=== PATIENT | female | born 1970 | race Caucasian/White ===

== ENCOUNTER → 2016-07-02 | Outpatient (REF) | payer BC ==
[~2016-07-02] MED LIST: ACET65TA; ATRO0.06; BUSP30TA PO; CLAR10CA3 PO; CLAR5CHW; D 50CAP PO; DARV100T; FERR325T; LEVO25TA5 PO; LEVO50TA2; LITH150C PO; LITH300T2; LITH600C; LYRI150C; LYRI150C PO; LYRI300C; MAALSUS; METO25TAB PO; MUCINEX; OCEAN NASAL SPRAY; OXYB5TAB4; PRIL20CA; PROT1TAB2 PO; PROV90AE; PROV90AE PO; SUCR1TA PO; SYMB80AE PO; VIBR100C; VICO5TAB16 PO; VITA100T; VITATAB64 PO; XOPE1.252; ZANT300T PO; ZEBE5TAB; [UNRECOGNIZED DRUG - OTHER]
[2016-07-02 11:44] LABS: ALBUMIN 3.5 GM/DL (3.2-5.2); ANION GAP 7 MEQ/L (8-16); BLOOD UREA NITROGEN 11 MG/DL (7-18); CALCIUM LEVEL 8.5 MG/DL (8.5-10.1); CARBON DIOXIDE LEVEL 28 MEQ/L (21-32); CHLORIDE LEVEL 107 MEQ/L (98-107); CREATININE FOR GFR 0.86 MG/DL (0.55-1.02); GLOMERULAR FILTRATION RATE > 60.0 (>58); GLUCOSE, FASTING 87 MG/DL (70-105); PHOSPHORUS LEVEL 3.2 MG/DL (2.5-4.9); SODIUM LEVEL 142 MEQ/L (136-145); T UPTAKE 32 % (30-39); THYROXINE (T4) 6.9 UG/DL (4.5-12.0)
[2016-07-02 11:50] LABS: LITHIUM LEVEL 1.33 MEQ/L (0.60-1.20)
== END | disposition home or self-care (01) ==
LOC: M LABDRAWC 10:59
PROVIDERS: ATTEND Anesthesiology Pain Medicine
DX: Z51.81 Encounter for therapeutic drug level monitoring (principal); Z79.899 Other long term (current) drug therapy

== ENCOUNTER → 2016-09-14 | Outpatient (CLI) | payer BC ==
--- NOTE | 2016-09-14 08:35 | REP ---
History of psoriatic arthritis. COMPARISON: 12/17/2014. FINDINGS: The joint space is symmetric and relatively well maintained. There is no acute fracture or dislocation. No significant change from prior exam.
== END ==
LOC: M CLY 07:44
PROVIDERS: ATTEND Family Medicine
DX: M25.552 Pain in left hip (principal)

== ENCOUNTER → 2016-11-17 | Outpatient (REF) | payer BC ==
[2016-11-17 18:46] LABS: ALBUMIN 3.4 GM/DL (3.2-5.2); ALBUMIN/GLOBULIN RATIO 1.26 (1.00-1.93); ALKALINE PHOSPHATASE 82 U/L (45-117); ALT/SGPT 21 U/L (12-78); ANION GAP 3 MEQ/L (8-16); AST/SGOT 13 U/L (15-37); BILIRUBIN,TOTAL 0.3 MG/DL (0.2-1.0); BLOOD UREA NITROGEN 7 MG/DL (7-18); CALCIUM LEVEL 8.5 MG/DL (8.5-10.1); CARBON DIOXIDE LEVEL 29 MEQ/L (21-32); CHLORIDE LEVEL 106 MEQ/L (98-107); CREATININE FOR GFR 0.74 MG/DL (0.55-1.02); GLOMERULAR FILTRATION RATE > 60.0 (>58); GLUCOSE, FASTING 104 MG/DL (70-105); POTASSIUM SERUM 4.4 MEQ/L (3.5-5.1); SODIUM LEVEL 138 MEQ/L (136-145); T UPTAKE 35 % (30-39); THYROXINE (T4) 8.9 UG/DL (4.5-12.0); TOTAL PROTEIN 6.1 GM/DL (6.4-8.2)
[2016-11-17 20:10] LABS: MEAN CORPUSCULAR HEMOGLOBIN 26.2 pg (27.0-33.0); MEAN CORPUSCULAR VOLUME 87.5 fl (80.0-96.0); RED CELL DISTRIBUTION WIDTH 14.7 % (11.5-14.5); WHITE BLOOD COUNT 8.5 K/mm3 (4.0-10.0)
== END ==
LOC: M LAB REF 16:56
PROVIDERS: ATTEND Anesthesiology Pain Medicine
DX: Z51.81 Encounter for therapeutic drug level monitoring (principal); Z79.899 Other long term (current) drug therapy

== ENCOUNTER → 2017-01-06 | Outpatient (CLI) | payer BC ==
[~2017-01-06] MED LIST changes: +METO25TA4 PO; -METO25TAB PO
--- NOTE | 2017-01-07 08:10 | REP ---
Clinical: Arthritis. Technique: AP, lateral, bilateral oblique and sunrise views of the right and left knee. Findings: Subchondral sclerosis and mild joint space narrowing is appreciated involving the bilateral medial and patellofemoral joint spaces. Remainder examination is normal for age. No acute or healed fracture. No effusion. Impression: Mild degenerative changes. Signed by Harry Fofana MD 01/07/2017 02:36 A
--- NOTE | 2017-01-07 08:10 | REP ---
Clinical: Bursitis. Technique: AP, lateral, bilateral oblique views of the right elbow. Findings: Lateral view demonstrates a small fractured osteophyte at the olecranon process. Minimal overlying soft tissue swelling noted. No obvious effusion. Remainder examination appears relatively normal for age. No further acute fracture dislocation. Impression: Mild degenerative changes related to the olecranon process may reflect mild underlying acute/chronic bursitis. Signed by Harry Fofana MD 01/07/2017 02:41 A
== END ==
LOC: M CLY 10:05
PROVIDERS: ATTEND Family Medicine
DX: M19.90 Unspecified osteoarthritis, unspecified site (principal); M70.21 Olecranon bursitis, right elbow

== ENCOUNTER → 2017-01-14 | Outpatient (CLI) | payer BC ==
--- NOTE | 2017-01-14 14:53 | REPMRS ---
Patient History The patient states she had a clinical breast exam in No known family history of cancer. Digital Woman Screen Mammo: January 14, 2017 - Exam #: [id number] Bilateral CC and MLO view(s) were taken. Technologist: Juhi Arellano, Technologist Prior study comparison: January 26, 2016, digital woman screen mammo performed at [facility] to [facility]. December 03, 2014, digital woman screen mammo performed at [facility]. FINDINGS: There are scattered fibroglandular densities. There has been no change in the appearance of the mammogram from the prior studies. There is a mild amount of residual fibroglandular tissue which is fairly symmetric. There is no interval development of dominant mass, architectural distortion, or clustered microcalcification suggestive of malignancy. ASSESSMENT: BI-RADS/ACR category 1 mammogram. Negative. Recommendation Routine screening mammogram in 1 year (for women over age 40). This mammogram was interpreted with the aid of an FDA-approved computer-aided dectection system. Electronically Signed By: Iggy Fink MD 01/14/17 [id number]
== END ==
LOC: M WHC 13:21
PROVIDERS: ATTEND Nurse Practitioner Family
DX: Z12.31 Encounter for screening mammogram for malignant neoplasm of breast (principal)

== ENCOUNTER → 2017-01-14 | Outpatient (REF) | payer BC | LOC: M SFHCWAGY 13:59 | PROVIDERS: ATTEND Nurse Practitioner Family | DX: Z01.419 Encounter for gynecological examination (general) (routine) without abnormal findings (principal); Z11.51 Encounter for screening for human papillomavirus (HPV); R87.610 Atypical squamous cells of undetermined significance on cytologic smear of cervix (ASC-US) ==

== ENCOUNTER → 2017-02-08 | Outpatient (CLI) | payer BC ==
--- NOTE | 2017-02-08 14:36 | REP ---
Clinical: Shoulder pain . Technique: Internal rotation, external rotation, and Y view right and left shoulder . Findings: No acute fracture or dislocation. The acromioclavicular and glenohumeral joints are intact and normal for age. No periarticular calcifications or overt arthritic degenerative changes are appreciated. Sub acromial space is normal. Surrounding soft tissues are unremarkable. Impression: Normal age appropriate bilateral shoulder radiographs.
--- NOTE | 2017-02-08 14:37 | REP ---
Clinical: Pain. Technique: AP, lateral, bilateral oblique views of the right hand. Findings: No acute fracture dislocation. Skeletal structures, joint spaces, and surrounding soft tissues are relatively normal for age. Very minimal joint space narrowing at the interphalangeal joint level is suggested. No further osteoarthritic degenerative changes are identified. Impression: Essentially age-appropriate examination. Very minimal joint space narrowing at the interphalangeal joints.
--- NOTE | 2017-02-08 14:38 | REP ---
Clinical: Pain . Technique: AP, lateral, bilateral oblique and weightbearing views of the bilateral ankles. Findings: No acute fracture or dislocation. Skeletal structures and joint spaces are intact and normal. Ankle mortise appears stable. No subcutaneous emphysema or radiodense foreign body. No significant, overt arthritic degenerative changes appreciated. Impression: Normal bilateral ankle radiograph series.
--- NOTE | 2017-02-08 14:40 | REP ---
Clinical: Lower back pain. Technique: AP, bilateral oblique and angled views of the sacroiliac joints. Findings: The bilateral sacroiliac joints are symmetric and normal. No significant periarticular sclerosis, erosive changes, fusion or spurring appreciated. Impression: Normal, age-appropriate bilateral sacroiliac joint series.
[2017-02-08 18:26] LABS: BASO # 0.1 K/mm3 (0.0-0.2); BASO % 0.8 % (0.0-1.0); EOS # 0.3 K/mm3 (0.0-0.50); LARGE UNSTAINED CELL # 0.1 K/mm3 (0.0-0.4); LARGE UNSTAINED CELL % 1.8 % (0.0-4.0); LYMPH # 1.2 K/mm3 (1.5-4.5); MEAN CORPUSCULAR HEMOGLOBIN 27.8 pg (27.0-33.0); MEAN CORPUSCULAR HGB CONC 30.9 g/dl (32.0-36.5); MEAN CORPUSCULAR VOLUME 89.8 fl (80.0-96.0); MONO # 0.4 K/mm3 (0.0-0.8); MONO % 4.8 % (0.0-5.0); NEUTROPHILS # 5.4 K/mm3 (1.8-7.7); NEUTROPHILS % 72.5 % (36.0-66.0); PLATELET COUNT, AUTOMATED 227 k/mm3 (150-450); RED CELL DISTRIBUTION WIDTH 14.6 % (11.5-14.5); WHITE BLOOD COUNT 7.5 K/mm3 (4.0-10.0)
[2017-02-08 19:09] LABS: ALBUMIN 3.6 GM/DL (3.2-5.2); ALBUMIN/GLOBULIN RATIO 1.16 (1.00-1.93); ALKALINE PHOSPHATASE 108 U/L (45-117); ALT/SGPT 19 U/L (12-78); ANION GAP 8 MEQ/L (8-16); AST/SGOT 13 U/L (15-37); BILIRUBIN,TOTAL 0.3 MG/DL (0.2-1.0); BLOOD UREA NITROGEN 7 MG/DL (7-18); CARBON DIOXIDE LEVEL 26 MEQ/L (21-32); CHLORIDE LEVEL 110 MEQ/L (98-107); CREATININE FOR GFR 0.88 MG/DL (0.55-1.02); GLOMERULAR FILTRATION RATE > 60.0 (>58); GLUCOSE, FASTING 42 MG/DL (70-105); POTASSIUM SERUM 4.2 MEQ/L (3.5-5.1); SODIUM LEVEL 144 MEQ/L (136-145); TOTAL PROTEIN 6.7 GM/DL (6.4-8.2)
--- NOTE | 2017-02-08 19:35 | REP ---
LUMBAR SPINE, FIVE VIEWS: HISTORY: Back pain. COMPARISON: 01/15/2013. There is no acute fracture or subluxation. The L4-5 and L5-S1 intervertebral discs are decreased in height. Vacuum phenomenon is present at L5-S1. These findings are consistent with disc degeneration. Osteophytes are present on L5 and S1. There is narrowing of the L4-5 and L5-S1 facet joints. IMPRESSION:Degenerative change as described above.
[2017-02-08 19:53] LABS: ERYTHROCYTE SEDIMENTATION RATE 10 mm/hr (0-20)
[2017-02-10 14:25] LABS: ALBUMIN 3.87 GM/DL (3.29-5.55); ALBUMIN % 57.7 % (55.8-66.1); GAMMA GLOBULIN % 12.2 % (11.1-18.8)
[2017-02-11 00:06] LABS: Lyme Disease IgG/IgM Antibodie <0.91 ISR (0.00-0.90); Lyme Disease IgM Ab Quantitati <0.80 index (0.00-0.79)
== END ==
LOC: M CLY 12:45
PROVIDERS: ATTEND Internal Medicine Rheumatology
DX: Z51.81 Encounter for therapeutic drug level monitoring (principal); Z79.899 Other long term (current) drug therapy; D80.1 Nonfamilial hypogammaglobulinemia; E55.9 Vitamin D deficiency, unspecified; R53.83 Other fatigue; M18.0 Bilateral primary osteoarthritis of first carpometacarpal joints; M51.37 Other intervertebral disc degeneration, lumbosacral region

== ENCOUNTER 2017-05-13 11:42 | Day surgery (SDC) | payer BC ==
[~2017-05-13] VITALS: Ht 162.6 cm; Wt 86.6 kg
[~2017-05-13 11:42] MED LIST changes: +LYRI300C PO
[2017-05-13] MEDS ORDERED: PROPOFOL 200 MG/20 ML VIAL As Ordered ONE (12:04)
[2017-05-13] MEDS ORDERED: LIDOCAINE 2% INJ 100 MG/5 ML SDV (FOR ANES.) As Ordered ONE (12:04)
[2017-05-13] MEDS ORDERED: NS 1,000 ML IV ONE (13:00)
--- NOTE | 2017-05-13 14:07 | ROOR ---
Patient Name: Cintia Briggs Procedure Date: 05/13/2017 1:41 PM Date of : 1970 Age: 46 [facility] Gender: Female Note Status: Finalized Procedure: Upper GI endoscopy Indications: Oropharyngeal phase dysphagia, Suspected gastroparesis (large food in stomach on a previous scope) Providers: Kade ROBERSON MD Referring MD: Sergio Zayas MD Requesting Provider: Medicines: Monitored Anesthesia Care Complications: No immediate complications. Procedure: Pre-Anesthesia Assessment: - The heart rate, respiratory rate, oxygen saturations, blood pressure, adequacy of pulmonary ventilation, and response to care were monitored throughout the procedure. The Endoscope was introduced through the mouth, and advanced to the second part of duodenum. The upper GI endoscopy was accomplished without difficulty. The patient tolerated the procedure well. Findings: The examined esophagus was normal. No endoscopic abnormality was evident in the esophagus to explain the patient's complaint of dysphagia. It was decided, however, to proceed with dilation of the entire esophagus. The scope was withdrawn. Dilation was performed with a Lance dilator with no resistance at 54 Fr. The dilation site was examined following endoscope reinsertion and showed no change. Evidence of an antrectomy and previous surgical anastomosis were found in the gastric antrum. This was characterized by healthy appearing mucosa. The examined duodenum was normal. Impression: - Normal esophagus. - No endoscopic esophageal abnormality to explain patient's dysphagia. Esophagus dilated with 54 F lance dilator. - A probable antrectomy (or pyloroplasty) and resection of part of fundus was found, characterized by healthy appearing mucosa. Overall volume of stomach is probably only mildly reduced. - Normal examined duodenum. - No specimens collected. Recommendation: - Observe patient's clinical course. - Continue present medications. - Gastroparesis diet: - Eat smaller, more frequent meals throughout the day. - Low fat diet. - Liquid/soft foods are tolerated better than solid foods. - Low fiber/well cooked vegetables are tolerated better than high fiber/fibrous foods/raw vegetables. - Avoid medications that inhibit gastric/intestinal motility such as narcotic medications. Kade Roberson MD Kade ROBERSON MD 05/13/2017 2:07:27 PM This report has been signed electronically. Number of Addenda: 0 Note Initiated On: 05/13/2017 1:41 PM Estimated Blood Loss: Estimated blood loss: none.
[2017-05-13 14:41] VITALS: BP 142/80
== END 2017-05-13 14:30 | disposition home or self-care (01) ==
LOC: M OPP 11:42
PROVIDERS: ATTEND Internal Medicine Gastroenterology
DX: R13.12 Dysphagia, oropharyngeal phase (principal); Z98.0 Intestinal bypass and anastomosis status; Z90.3 Acquired absence of stomach [part of]; I10 Essential (primary) hypertension; K21.9 Gastro-esophageal reflux disease without esophagitis; J45.909 Unspecified asthma, uncomplicated; Q07.00 Arnold-Chiari syndrome without spina bifida or hydrocephalus; R00.0 Tachycardia, unspecified; E05.90 Thyrotoxicosis, unspecified without thyrotoxic crisis or storm; F31.9 Bipolar disorder, unspecified; F41.9 Anxiety disorder, unspecified; F43.10 Post-traumatic stress disorder, unspecified; Z87.891 Personal history of nicotine dependence; Z88.8 Allergy status to other drugs, medicaments and biological substances; Z79.899 Other long term (current) drug therapy

== ENCOUNTER → 2017-07-18 | Outpatient (REF) | payer BC ==
[2017-07-18 13:39] LABS: BASO # 0.1 10^3/uL (0.0-0.2); BASO % 0.8 % (0.0-1.0); EOS # 0.4 10^3/uL (0.0-0.50); EOS % 2.8 % (0.0-3.0); HEMATOCRIT 42.8 % (36.0-47.0); HEMOGLOBIN 13.3 g/dl (12.0-16.0); IMMATURE GRANULOCYTE % 0.3 % (0-3.0); LYMPH % 16.5 % (24.0-44.0); MEAN CORPUSCULAR HGB CONC 31.1 g/dl (32.0-36.5); MEAN CORPUSCULAR VOLUME 96.6 fl (80.0-96.0); MONO # 0.8 10^3/uL (0.0-0.8); MONO % 6.2 % (0.0-5.0); NEUTROPHILS % 73.4 % (36.0-66.0); PLATELET COUNT, AUTOMATED 238 10^3/uL (150-450); RED BLOOD COUNT 4.43 10^6/uL (4.00-5.40); RED CELL DISTRIBUTION WIDTH 14.1 % (11.5-14.5); WHITE BLOOD COUNT 12.3 10^3/uL (4.0-10.0)
[2017-07-18 14:13] LABS: ALBUMIN/GLOBULIN RATIO 1.43 (1.00-1.93); ALKALINE PHOSPHATASE 116 U/L (45-117); ALT/SGPT 17 U/L (12-78); ANION GAP 3 MEQ/L (8-16); AST/SGOT 15 U/L (7-37); BILIRUBIN,TOTAL 0.4 MG/DL (0.2-1.0); BLOOD UREA NITROGEN 9 MG/DL (7-18); CALCIUM LEVEL 9.2 MG/DL (8.5-10.1); CARBON DIOXIDE LEVEL 31 MEQ/L (21-32); CHLORIDE LEVEL 111 MEQ/L (98-107); CREATININE FOR GFR 0.96 MG/DL (0.55-1.30); FREE T3 2.5 PG/ML (2.2-4.0); GLOMERULAR FILTRATION RATE > 60.0 (>58); GLUCOSE, FASTING 110 MG/DL (70-100); POTASSIUM SERUM 5.1 MEQ/L (3.5-5.1); SODIUM LEVEL 145 MEQ/L (136-145); THYROID STIMULATING HORMONE 0.971 uIU/ML (0.358-3.740); THYROXINE (T4) 8.4 UG/DL (4.5-12.0); TOTAL PROTEIN 6.8 GM/DL (6.4-8.2)
[2017-07-18 14:14] LABS: LITHIUM LEVEL 1.41 MEQ/L (0.60-1.20)
== END ==
LOC: M LABDRAWC 08:20
DX: F31.9 Bipolar disorder, unspecified (principal)

== ENCOUNTER → 2017-07-21 | Outpatient (CLI) | payer BC | LOC: M CLY 11:19 | DX: M19.90 Unspecified osteoarthritis, unspecified site (principal) | CPT/HCPCS: 73610 ==

== ENCOUNTER → 2017-09-16 | Outpatient (REF) | payer BC ==
[2017-09-16 12:56] LABS: TOTAL 25(OH) VITAMIN D 60.1 NG/ML (30.0-100.0)
[2017-09-16 13:01] LABS: ALBUMIN 3.7 GM/DL (3.2-5.2); ALBUMIN/GLOBULIN RATIO 1.28 (1.00-1.93); ALKALINE PHOSPHATASE 92 U/L (45-117); ALT/SGPT 20 U/L (12-78); ANION GAP 5 MEQ/L (8-16); AST/SGOT 15 U/L (7-37); BILIRUBIN,TOTAL 0.3 MG/DL (0.2-1.0); BLOOD UREA NITROGEN 9 MG/DL (7-18); CALCIUM LEVEL 9.2 MG/DL (8.5-10.1); CARBON DIOXIDE LEVEL 29 MEQ/L (21-32); CHLORIDE LEVEL 110 MEQ/L (98-107); CREATININE FOR GFR 0.85 MG/DL (0.55-1.30); GLOMERULAR FILTRATION RATE > 60.0 (>58); GLUCOSE, FASTING 97 MG/DL (70-100); POTASSIUM SERUM 4.3 MEQ/L (3.5-5.1); RHEUMATOID FACTOR QUANT < 10.0 IU/ML (<15.0); SODIUM LEVEL 144 MEQ/L (136-145); TOTAL PROTEIN 6.6 GM/DL (6.4-8.2)
[2017-09-16 13:20] LABS: BASO # 0.1 10^3/uL (0.0-0.2); BASO % 1.7 % (0.0-1.0); EOS # 0.3 10^3/uL (0.0-0.50); EOS % 4.4 % (0.0-3.0); HEMATOCRIT 42.8 % (36.0-47.0); HEMOGLOBIN 13.5 g/dl (12.0-15.5); IMMATURE GRANULOCYTE % 0.2 % (0-3.0); LYMPH # 1.5 10^3/uL (1.5-4.5); LYMPH % 25.9 % (24.0-44.0); MEAN CORPUSCULAR HEMOGLOBIN 30.2 pg (27.0-33.0); MEAN CORPUSCULAR HGB CONC 31.5 g/dl (32.0-36.5); MEAN CORPUSCULAR VOLUME 95.7 fl (80.0-96.0); MONO # 0.5 10^3/uL (0.0-0.8); MONO % 8.9 % (0.0-5.0); NEUTROPHILS # 3.5 10^3/uL (1.8-7.7); NEUTROPHILS % 58.9 % (36.0-66.0); PLATELET COUNT, AUTOMATED 205 10^3/uL (150-450); RED BLOOD COUNT 4.47 10^6/uL (4.00-5.40); RED CELL DISTRIBUTION WIDTH 13.4 % (11.5-14.5)
[2017-09-16 14:02] LABS: ERYTHROCYTE SEDIMENTATION RATE 23 mm/hr (0-20)
[2017-09-17 14:11] LABS: ANTINUCLEAR ANTIBODIES DIRECT Negative (Negative)
== END ==
LOC: M LABNEURO 10:24
DX: R51 Headache (principal)
CPT/HCPCS: 84443

== ENCOUNTER → 2018-01-26 | Outpatient (CLI) | payer BC | LOC: M WHC 07:52 | DX: Z12.31 Encounter for screening mammogram for malignant neoplasm of breast (principal) | CPT/HCPCS: 77067 ==

== ENCOUNTER → 2018-03-10 | Outpatient (REF) | payer BC ==
[2018-03-10 19:00] LABS: C REACTIVE PROTEIN QUANTITATIV < 0.30 MG/DL (0.00-0.30)
[2018-03-10 19:13] LABS: TOTAL 25(OH) VITAMIN D 66.6 NG/ML (30.0-100.0)
[2018-03-14 00:06] LABS: RNP ANTIBODY < 0.2 AI (0.0-0.9); SMITHS ANTIBODY < 0.2 AI (0.0-0.9)
== END ==
LOC: M SFHCLERA 12:06
DX: M25.50 Pain in unspecified joint (principal)

== ENCOUNTER → 2018-04-13 | Outpatient (REF) | payer BC ==
[2018-04-21 00:56] LABS: HPV HYBRID CAPTURE II Negative (Negative)
== END ==
LOC: M SFHCWAGY 16:16
DX: Z01.419 Encounter for gynecological examination (general) (routine) without abnormal findings (principal); Z11.51 Encounter for screening for human papillomavirus (HPV); R87.610 Atypical squamous cells of undetermined significance on cytologic smear of cervix (ASC-US)

== ENCOUNTER → 2018-04-21 | Outpatient (REF) | payer BC ==
[2018-04-21 12:22] LABS: ANION GAP 5 MEQ/L (8-16); BLOOD UREA NITROGEN 9 MG/DL (7-18); CARBON DIOXIDE LEVEL 29 MEQ/L (21-32); CHLORIDE LEVEL 109 MEQ/L (98-107); CHOLESTEROL LEVEL 140 MG/DL (<200); CREATININE FOR GFR 0.78 MG/DL (0.55-1.30); GLOMERULAR FILTRATION RATE > 60.0 (>58); GLUCOSE, FASTING 96 MG/DL (70-100); POTASSIUM SERUM 4.3 MEQ/L (3.5-5.1); SODIUM LEVEL 143 MEQ/L (136-145); TRIGLYCERIDES LEVEL 115 MG/DL (<150)
[2018-04-21 12:23] LABS: ALBUMIN 3.4 GM/DL (3.2-5.2); FREE T3 2.5 PG/ML (2.2-4.0); FREE T4 0.94 NG/DL (0.76-1.46); HDL CHOLESTEROL 35 MG/DL (>40); LDL CHOLESTEROL 82 MG/DL (<100); LITHIUM LEVEL 1.32 MEQ/L (0.60-1.20); NON-HDL-C 105 MG/DL
== END ==
LOC: M LABDRAWC 11:38
DX: Z79.899 Other long term (current) drug therapy (principal); F31.9 Bipolar disorder, unspecified
CPT/HCPCS: 80178

== ENCOUNTER → 2018-05-05 | Outpatient (REF) | payer BC | LOC: M SFHCCLAY 11:44 | DX: D50.0 Iron deficiency anemia secondary to blood loss (chronic) (principal); Z53.8 Procedure and treatment not carried out for other reasons ==

== ENCOUNTER → 2018-06-08 | Outpatient (CLI) | payer BC ==
[~2018-06-08] MED LIST changes: -ZANT300T PO; +ZANT300T9 PO
--- NOTE | 2018-06-08 21:10 | REP ---
Clinical: Abnormal menstrual cycles . Technique: Transabdominal pelvic ultrasound followed by transvaginal examination for better evaluation of the endometrium and adnexa. Comparison: 02/03/2016 Findings: Bladder is unremarkable and measures 7.7 x 4.2 x 8.5 cm . Myomatous anteverted uterus measures 7.9 x 3.7 x 5.1 cm . The endometrial complex measures 8.4 mm thickness. Right anterior fibroid measures 1.8 cm maximal diameter and posterior subserosal fibroid measures 1.8 cm maximal diameter Right ovary measures 3.7 x 2.9 x 2.5 cm with 2.4 cm complex septated cyst and 1.8 cm simple likely physiologic cyst ; Left ovary measures 3.6 x 1.9 x 3.7 cm with a 2.5 cm complex septated cyst and 1.8 cm simple cyst. No pelvic free fluid or adnexal mass lesion identified . Impression: 1. Myomatous changes to the uterus similar to prior examination. 2. Bilateral complex septated cysts likely physiologic although reevaluation in 4-6 weeks may be warranted. Electronically Signed by Harry Fofana MD 06/08/2018 09:00 P
== END ==
LOC: M WHC 10:37
PROVIDERS: ATTEND Nurse Practitioner Family
DX: N83.202 Unspecified ovarian cyst, left side (principal); N92.1 Excessive and frequent menstruation with irregular cycle

== ENCOUNTER → 2018-07-20 | Outpatient (CLI) | payer BC ==
--- NOTE | 2018-07-20 15:15 | REP ---
PELVIC ULTRASOUND: Real-time sonographic evaluation of pelvis performed utilizing transabdominal and endovaginal technique. Bladder measures 5.6 x 7.6 x 4.7 cm. Uterus measures 6.0 x 3.4 x 4.1 cm. Endometrial thickness is 5 mm. Lower uterine segment fibroid measures 1.7 x 0.9 x 1.6 cm. Nabothian cyst is seen in the region of the cervix. Right ovary measures 2.6 x 2.1 x 2.1 cm, and left ovary 2.9 x 2.9 x 2.3 cm. Two small cystic structures in the right ovary are seen, one measuring 9 mm, and the other containing a septation measuring 1.3 x 0.7 x 0.7 cm. There are two small cystic structures in the left ovary with one having a maximum diameter of 8 mm and the other 1.1 cm. IMPRESSION: Small lower uterine segment fibroid again seen. The cystic structures in the right ovary seen on 06/08/2018 appear to have decreased in size and appear to have represented dominant follicles. Another complex dominant follicle in the left ovary has either resolved or decreased in size. No suspicious findings at this time.
== END ==
LOC: M WHC 12:40
PROVIDERS: ATTEND Obstetrics & Gynecology
DX: D25.9 Leiomyoma of uterus, unspecified (principal); N88.8 Other specified noninflammatory disorders of cervix uteri

== ENCOUNTER → 2018-12-04 | Outpatient (REF) | payer BC ==
[~2018-12-04] MED LIST changes: +ALBU17IN2 INH; +CALC-176 PO; +CALC1TAB11 PO; +CVS1CHW8 PO; +D3 S20002 PO; +DESM0.2T10 PO; +DOCU250C7 PO; +FERR150C PO; +FOLI1TAB11 PO; +LEVO100T5 PO; +LIDO5CRE6 EX; +LITH1TAB PO; +METO50TA7 PO; +SYMB16INH INH; -VICO5TAB16 PO; +VICO5TAB17 PO; +VITA1CAP25 PO
[2018-12-04 11:50] LABS: BASO # 0.1 10^3/uL (0.0-0.2); BASO % 1.5 % (0.0-1.0); EOS # 0.3 10^3/uL (0.0-0.50); EOS % 4.1 % (0.0-3.0); HEMATOCRIT 42.9 % (36.0-47.0); HEMOGLOBIN 13.4 g/dl (12.0-15.5); LYMPH # 2.3 10^3/uL (1.5-4.5); LYMPH % 34.3 % (24.0-44.0); MEAN CORPUSCULAR HEMOGLOBIN 30.8 pg (27.0-33.0); MEAN CORPUSCULAR HGB CONC 31.2 g/dl (32.0-36.5); MEAN CORPUSCULAR VOLUME 98.6 fl (80.0-96.0); MONO # 0.5 10^3/uL (0.0-0.8); MONO % 6.9 % (0.0-5.0); NEUTROPHILS # 3.5 10^3/uL (1.8-7.7); PLATELET COUNT, AUTOMATED 197 10^3/uL (150-450); RED BLOOD COUNT 4.35 10^6/uL (4.00-5.40); WHITE BLOOD COUNT 6.7 10^3/uL (4.0-10.0)
[2018-12-04 12:21] LABS: ALBUMIN 3.4 GM/DL (3.2-5.2); ALT/SGPT 18 U/L (12-78); BILIRUBIN,TOTAL 0.5 MG/DL (0.2-1.0); BLOOD UREA NITROGEN 8 MG/DL (7-18); CALCIUM LEVEL 9.2 MG/DL (8.5-10.1); CARBON DIOXIDE LEVEL 29 MEQ/L (21-32); CHLORIDE LEVEL 109 MEQ/L (98-107); CREATININE FOR GFR 0.88 MG/DL (0.55-1.30); GLOMERULAR FILTRATION RATE > 60.0 (>58); GLUCOSE, FASTING 86 MG/DL (70-100); LITHIUM LEVEL 1.26 MEQ/L (0.60-1.20); POTASSIUM SERUM 4.3 MEQ/L (3.5-5.1); SODIUM LEVEL 142 MEQ/L (136-145); THYROXINE (T4) 7.2 UG/DL (4.5-12.0); TOTAL PROTEIN 6.2 GM/DL (6.4-8.2)
[2018-12-04 12:22] LABS: FREE T3 2.5 PG/ML (2.2-4.0)
== END ==
LOC: M LABDRAWC 11:15
PROVIDERS: ATTEND Anesthesiology Pain Medicine
DX: Z01.812 Encounter for preprocedural laboratory examination (principal)

== ENCOUNTER 2018-12-28 08:50 | Day surgery (SDC) | payer BC ==
[~2018-12-28] VITALS: Ht 167.6 cm; Wt 85.6 kg
[~2018-12-28 08:50] MED LIST changes: +LIDOCAINE 1% MDV 20ML VIAL SQ PRN; +LR 1,000 ML IV ONE
[2018-12-28 09:55] LABS: URINE PREG TEST NEGATIVE (NEGATIVE)
[2018-12-28] MEDS ORDERED: dexameTHASONE 4 MG/ML 1ML VIAL (J1100) As Ordered ONE (10:05)
[2018-12-28] MEDS ORDERED: ONDANSETRON 4MG/2ML VIAL (J2405) As Ordered ONE (10:05)
[2018-12-28] MEDS ORDERED: PROPOFOL 200 MG/20 ML VIAL As Ordered ONE (10:05)
[2018-12-28] MEDS ORDERED: LIDOCAINE 2% INJ 100 MG/5 ML SDV (FOR ANES.) As Ordered ONE (10:05)
[2018-12-28] MEDS ORDERED: MIDAZOLAM INJ 2 MG/2 ML VIAL (J2250) As Ordered ONE (10:06)
[2018-12-28] MEDS ORDERED: fentaNYL 100 MCG/2 ML INJECTION (J3010) As Ordered ONE (10:06)
[2018-12-28] MEDS ORDERED: SUCCINYLCHOLINE 100 MG/5 ML SYRINGE (J0330) As Ordered ONE (13:00)
[2018-12-28] MEDS ORDERED: KETOROLAC 60 MG/2 ML VIAL (J1885) As Ordered ONE (13:05)
[2018-12-28] MEDS ORDERED: ACETAMINOPHEN 1000MG 100ML IV BTL (OFIRMEV) (J0131 PER 10MG) As Ordered ONE (13:11)
[2018-12-28] MEDS ORDERED: NORCO, ANEXSIA 5/325MG TABLET (HYDROcodone/ACETAMINOPHEN) PO PRN ×2 (13:45→14:00)
[2018-12-28] MEDS ORDERED: ONDANSETRON 4MG/2ML VIAL (J2405) IV PRN (13:45)
[2018-12-28] MEDS ORDERED: MORPHINE 10 MG/ML 1ML VIAL (J2270) IV PRN (13:45)
[2018-12-28] MEDS ORDERED: LR 1,000 ML IV SCH (13:45)
[2018-12-28] MEDS ORDERED: IBUPROFEN 600 MG TAB PO PRN (14:00)
[2018-12-28 15:45] VITALS: BP 148/79
--- NOTE | 2018-12-29 11:01 | RO ---
DATE OF PROCEDURE: 12/28/2018 PREPROCEDURE DIAGNOSIS: Bleeding and pain. POSTPROCEDURE DIAGNOSIS: Bleeding and pain with findings as expected. PROCEDURE: Dilation and curettage, hysteroscopy, NovaSure ablation. SURGEON: Dr. Qian Parikh. COLD FOOD PACKER: None. ANESTHESIA: General endotracheal anesthesia. The patient has significant reflux. SPECIMENS: Curettings of the endometrium. DESCRIPTION OF PROCEDURE: Cintia was brought to the operating room where sufficient general endotracheal anesthesia was induced and she was prepped, draped and positioned in the usual sterile fashion. The weighted speculum placed, the bladder emptied and the anterior aspect of the cervix was grasped with a single tooth tenaculum. The uterus was sounded to 7 but the cervix was actually a little shortened as well sounding to 3, so we had a cavity length of 4. Subsequently, width was measured at 3, but at this point, we just had cavity length. The hysteroscope was placed and the cavity visualized. As noted in the operative photos, there were no unusual lesions, a little bit of endometrium as is consistent with the patient's report of heavy bleeding. Curettage was carried out to sample this and to smooth out the lining of the uterus for the ablation and then the NovaSure ablative device was placed. Length set at 4, width was measured at 3 and an uncomplicated test was undertaken and so we then did the NovaSure ablation. There were no complications and the procedure was then ended. ESTIMATED BLOOD LOSS: Maybe 1 mL. FLUID REPLACEMENT: Crystalloid. COMPLICATIONS: None. CONDITION AND DISPOSITION: Cintia tolerated the procedure well and was recovering in the recovery room in good condition.
== END 2018-12-28 16:03 | disposition home or self-care (01) ==
LOC: M SDC 08:50
PROVIDERS: ATTEND Obstetrics & Gynecology
DX: R10.2 Pelvic and perineal pain (principal); N92.0 Excessive and frequent menstruation with regular cycle; F43.10 Post-traumatic stress disorder, unspecified; F31.9 Bipolar disorder, unspecified; J45.909 Unspecified asthma, uncomplicated; K21.9 Gastro-esophageal reflux disease without esophagitis; K44.9 Diaphragmatic hernia without obstruction or gangrene; Z79.899 Other long term (current) drug therapy; Z79.51 Long term (current) use of inhaled steroids; Z91.040 Latex allergy status; I49.5 Sick sinus syndrome; Z88.0 Allergy status to penicillin; Z88.8 Allergy status to other drugs, medicaments and biological substances
CPT/HCPCS: 58356; 84703; 88304; J0131; J0330; J1100; J1885; J2250; J2405; J3010

== ENCOUNTER → 2019-02-21 | Outpatient (CLI) | payer BC ==
[~2019-02-21] MED LIST changes: -ALBU17IN2 INH; -LIDOCAINE 1% MDV 20ML VIAL SQ PRN; -LR 1,000 ML IV ONE; +PROV108A INH
--- NOTE | 2019-02-21 13:37 | REPMRS ---
Patient History The patient states she had a clinical breast exam in 02/2019. No known family history of cancer. 3D TOMOSYNTHESIS WAS PERFORMED. The [facility] lifetime risk for breast cancer is 10.6%. Digital Woman Screen Mammo: February 21, 2019 - Exam #: [id number] Bilateral CC and MLO view(s) were taken. Technologist: Clara Guido, Technologist Prior study comparison: January 26, 2018, bilateral digital woman screen mammo performed at [facility]. January 14, 2017, digital woman screen mammo performed at [facility]. FINDINGS: The breast tissue is heterogeneously dense. This may lower the sensitivity of mammography. There has been no change in the appearance of the mammogram from the prior studies. There is a moderate amount of residual fibroglandular tissue which is fairly symmetric. There is no interval development of dominant mass, areas of architectural distortion, or clustered microcalcification typical of malignancy. Assessment: BI-RADS/ACR category 1 mammogram. Negative Mammogram. Recommendation Routine screening mammogram in 1 year (for women over age 40). This mammogram was interpreted with the aid of an FDA-approved computer-aided dectection system. Electronically Signed By: Iggy Fink MD 02/21/19 [id number]
--- NOTE | 2019-02-26 10:12 | DEXA ---
AP SPINE L1 - L4 1.110 -0.7 -0.4 LT FEMUR TOTAL 0.841 -1.3 -0.9 LT NECK 0.772 -1.9 -1.2 RT FEMUR TOTAL 0.799 -1.7 -1.2 RT NECK 0.813 -1.6 -0.9 TOTAL BODY TOTAL OTHER COMMENTS: Normal bone densitometry of the spine. There is low bone density of the hips. The increased density of the spine does represent a significant change. The increased density of the left hip does represent a significant change. The increased density of the right hip does represent a significant change. The density of the spine has increased 3.1% since the initial exam on 10/15/2003. The spine density has increased 7.5% since the most recent exam on 03/16/2016. The density of the left hip has decreased 13.7% since the initial exam on 10/15/2003. The density of the left hip has increased 6.9% since the most recent exam on 03/16/2016. The density of the right hip has decreased 13.4% since the initial exam on 10/15/2003. The density of the right hip has increased 2.6% since the most recent exam on 03/16/2016. FOLLOW-UP: Recommendation for the next bone density exam: 2 years. MIRANDA
== END ==
LOC: M WHC 11:06
PROVIDERS: ATTEND Nurse Practitioner Family
DX: Z12.31 Encounter for screening mammogram for malignant neoplasm of breast (principal); M85.80 Other specified disorders of bone density and structure, unspecified site

== ENCOUNTER → 2019-02-26 | Outpatient (REF) | payer BC ==
[2019-02-26 12:59] LABS: ALBUMIN 3.4 GM/DL (3.2-5.2); BLOOD UREA NITROGEN 8 MG/DL (7-18); CALCIUM LEVEL 8.8 MG/DL (8.5-10.1); CARBON DIOXIDE LEVEL 30 MEQ/L (21-32); CHLORIDE LEVEL 109 MEQ/L (98-107); CREATININE FOR GFR 0.71 MG/DL (0.55-1.30); FREE T3 2.4 PG/ML (2.2-4.0); GLOMERULAR FILTRATION RATE > 60.0 (>58); GLUCOSE, FASTING 87 MG/DL (70-100); LITHIUM LEVEL 0.78 MEQ/L (0.60-1.20); PHOSPHORUS LEVEL 3.1 MG/DL (2.5-4.9); POTASSIUM SERUM 4.9 MEQ/L (3.5-5.1); SODIUM LEVEL 142 MEQ/L (136-145); THYROXINE (T4) 6.2 UG/DL (4.5-12.0)
== END ==
LOC: M LABDRAWC 11:14
PROVIDERS: ATTEND Anesthesiology Pain Medicine
DX: F31.9 Bipolar disorder, unspecified (principal)

== ENCOUNTER → 2019-07-13 | Outpatient (REF) | payer BC ==
[2019-07-13 16:20] LABS: BASO # 0.2 10^3/uL (0.0-0.2); BASO % 2.3 % (0.0-1.0); EOS # 0.3 10^3/uL (0.0-0.5); HEMATOCRIT 42.1 % (36.0-47.0); HEMOGLOBIN 13.5 g/dl (12.0-15.5); LYMPH # 1.5 10^3/uL (1.5-5.0); LYMPH % 23.2 % (24.0-44.0); MEAN CORPUSCULAR HGB CONC 32.1 g/dl (32.0-36.5); MEAN CORPUSCULAR VOLUME 96.6 fl (80.0-96.0); MONO # 0.5 10^3/uL (0.0-0.8); MONO % 7.4 % (0.0-5.0); NEUTROPHILS # 4.1 10^3/uL (1.5-8.5); NEUTROPHILS % 61.9 % (36.0-66.0); PLATELET COUNT, AUTOMATED 206 10^3/uL (150-450); RED BLOOD COUNT 4.36 10^6/uL (4.00-5.40); WHITE BLOOD COUNT 6.6 10^3/uL (4.0-10.0)
[2019-07-13 16:30] LABS: LITHIUM LEVEL 1.45 MEQ/L (0.60-1.20); THYROID STIMULATING HORMONE 0.729 uIU/ML (0.358-3.740)
== END ==
LOC: M SFHCCLAY 10:17
PROVIDERS: ATTEND Family Medicine
DX: J01.41 Acute recurrent pansinusitis (principal); E03.2 Hypothyroidism due to medicaments and other exogenous substances; F31.70 Bipolar disorder, currently in remission, most recent episode unspecified; J45.909 Unspecified asthma, uncomplicated

== ENCOUNTER → 2019-11-12 | Outpatient (REF) | payer BC ==
[2019-11-12 11:50] LABS: ALBUMIN 3.6 GM/DL (3.2-5.2); BLOOD UREA NITROGEN 6 MG/DL (7-18); CALCIUM LEVEL 9.2 MG/DL (8.5-10.1); CARBON DIOXIDE LEVEL 29 MEQ/L (21-32); CHLORIDE LEVEL 110 MEQ/L (98-107); CREATININE FOR GFR 0.94 MG/DL (0.55-1.30); GLOMERULAR FILTRATION RATE > 60.0 (>58); GLUCOSE, FASTING 108 MG/DL (70-100); LITHIUM LEVEL 1.36 MEQ/L (0.60-1.20); PHOSPHORUS LEVEL 3.1 MG/DL (2.5-4.9); POTASSIUM SERUM 4.5 MEQ/L (3.5-5.1); SODIUM LEVEL 142 MEQ/L (136-145); THYROXINE (T4) 5.8 UG/DL (4.5-12.0)
== END ==
LOC: M LABDRAWC 11:22
PROVIDERS: ATTEND Anesthesiology Pain Medicine
DX: F31.9 Bipolar disorder, unspecified (principal)

== ENCOUNTER 2020-01-08 12:15 | Day surgery (SDC) | payer BC ==
[2020-01-08] MEDS ORDERED: propofoL 200 MG/20 ML VIAL ONE (12:16)
[2020-01-08] MEDS ORDERED: LIDOCAINE 2% 100MG/5ML SDV (FOR ANES.) ONE (12:16)
--- NOTE | 2020-02-13 11:33 | ROOR ---
Patient Name: Cintia Briggs Procedure Date: 01/08/2020 9:45 AM Date of : 1970 Age: 49 Room: [facility] Gender: Female Note Status: Finalized Procedure: Upper GI endoscopy Indications: Oropharyngeal phase dysphagia, Pharyngeal phase dysphagia, Dysphagia, Heartburn Providers: Kade WARREN MD Referring MD: Sergio Zayas MD Requesting Provider: Medicines: Monitored Anesthesia Care Complications: No immediate complications. Procedure: Pre-Anesthesia Assessment: - The heart rate, respiratory rate, oxygen saturations, blood pressure, adequacy of pulmonary ventilation, and response to care were monitored throughout the procedure. The Endoscope was introduced through the mouth, and advanced to the second part of duodenum. The upper GI endoscopy was accomplished without difficulty. The patient tolerated the procedure well. Findings: The examined esophagus was normal. No endoscopic abnormality was evident in the esophagus to explain the patient's complaint of dysphagia. It was decided, however, to proceed with dilation of the entire esophagus. The scope was withdrawn. Dilation was performed with a Lance dilator with no resistance at 54 Fr. The entire examined stomach was normal. A deformity was found at the pylorus. The examined duodenum was normal. Impression: - Normal esophagus. - No endoscopic esophageal abnormality to explain patient's dysphagia. Esophagus dilated. Dilated. - Normal stomach (tubular appearing lumen with post-surgical deformity c/w a previous pyloroplasty). (I do not see a fundoplication wrap) - Normal examined duodenum. - No specimens collected. Recommendation: - Observe patient's clinical course. - I anticipate no further need for intervention. Kade WARREN MD 01/08/2020 12:37:23 PM Number of Addenda: 0 Note Initiated On: 01/08/2020 9:45 AM Estimated Blood Loss: Estimated blood loss: none.
== END 2020-01-08 14:05 | disposition home or self-care (01) ==
LOC: M OPP 12:15
PROVIDERS: ATTEND Internal Medicine Gastroenterology
DX: D12.3 Benign neoplasm of transverse colon (principal); K64.8 Other hemorrhoids; Z09 Encounter for follow-up examination after completed treatment for conditions other than malignant neoplasm; K91.89 Other postprocedural complications and disorders of digestive system; R13.12 Dysphagia, oropharyngeal phase; R13.13 Dysphagia, pharyngeal phase; R12 Heartburn; E03.9 Hypothyroidism, unspecified; R00.8 Other abnormalities of heart beat; Z79.899 Other long term (current) drug therapy; Z88.8 Allergy status to other drugs, medicaments and biological substances; Z91.041 Radiographic dye allergy status; Z91.048 Other nonmedicinal substance allergy status

== ENCOUNTER → 2020-02-05 | Outpatient (REF) | payer BC ==
[2020-02-05 13:57] LABS: BASO # 0.1 10^3/uL (0.0-0.2); BASO % 1.5 % (0.0-1.0); EOS # 0.4 10^3/uL (0.0-0.5); EOS % 7.2 % (0.0-3.0); HEMATOCRIT 42.9 % (36.0-47.0); HEMOGLOBIN 13.4 g/dl (12.0-15.5); LYMPH % 37.8 % (24.0-44.0); MEAN CORPUSCULAR HEMOGLOBIN 30.2 pg (27.0-33.0); MEAN CORPUSCULAR HGB CONC 31.2 g/dl (32.0-36.5); MEAN CORPUSCULAR VOLUME 96.6 fl (80.0-96.0); MONO # 0.5 10^3/uL (0.0-0.8); MONO % 9.5 % (0.0-5.0); NEUTROPHILS # 2.3 10^3/uL (1.5-8.5); NEUTROPHILS % 43.8 % (36.0-66.0); PLATELET COUNT, AUTOMATED 187 10^3/uL (150-450); RED BLOOD COUNT 4.44 10^6/uL (4.00-5.40); WHITE BLOOD COUNT 5.3 10^3/uL (4.0-10.0)
[2020-02-05 14:09] LABS: ALBUMIN 3.5 GM/DL (3.2-5.2); BLOOD UREA NITROGEN 9 MG/DL (7-18); CARBON DIOXIDE LEVEL 31 MEQ/L (21-32); CHLORIDE LEVEL 109 MEQ/L (98-107); FREE T4 1.08 NG/DL (0.76-1.46); GLOMERULAR FILTRATION RATE > 60.0 (>58); GLUCOSE, FASTING 93 MG/DL (70-100); LITHIUM LEVEL 1.17 MEQ/L (0.60-1.20); PHOSPHORUS LEVEL 3.3 MG/DL (2.5-4.9); POTASSIUM SERUM 4.3 MEQ/L (3.5-5.1); SODIUM LEVEL 140 MEQ/L (136-145); THYROID STIMULATING HORMONE 0.111 uIU/ML (0.358-3.740)
== END ==
LOC: M LABDRAWC 07:30
PROVIDERS: ATTEND Anesthesiology Pain Medicine
DX: Z79.899 Other long term (current) drug therapy (principal)

== ENCOUNTER → 2020-04-03 | Outpatient (REF) | payer BC | LOC: M SFHCWAGY 17:06 | PROVIDERS: ATTEND Nurse Practitioner Family | DX: Z12.4 Encounter for screening for malignant neoplasm of cervix (principal) ==

== ENCOUNTER → 2020-04-03 | Outpatient (CLI) | payer BC ==
--- NOTE | 2020-04-03 15:08 | REPMRS ---
Patient History The patient states she had a clinical breast exam in 03/2020. No known family history of cancer. No Hormone Replacement Therapy 3D TOMOSYNTHESIS WAS PERFORMED. The [facility] lifetime risk for breast cancer is 10.4%. Volpara breast density b. Digital Woman Screen Mammo: April 03, 2020 - Exam #: [id number] Bilateral CC and MLO view(s) were taken. Technologist: Jackie Thurman, Technologist Prior study comparison: February 21, 2019, bilateral digital woman screen mammo performed at [facility]. January 26, 2018, bilateral digital woman screen mammo performed at [facility]. FINDINGS: There are scattered fibroglandular densities. There has been no change in the appearance of the mammogram from the prior studies. There is a mild amount of residual fibroglandular tissue which is fairly symmetric. There is no interval development of dominant mass, architectural distortion, or clustered microcalcification suggestive of malignancy. Assessment: BI-RADS/ACR category 1 mammogram. Negative Mammogram. Recommendation Routine screening mammogram in 1 year (for women over age 40). This mammogram was interpreted with the aid of an FDA-approved computer-aided dectection system. Electronically Signed By: Iggy Fink MD 04/03/20 0365
== END ==
LOC: M WHC 13:40
PROVIDERS: ATTEND Nurse Practitioner Family
DX: Z12.31 Encounter for screening mammogram for malignant neoplasm of breast (principal)

== ENCOUNTER → 2020-04-21 | Outpatient (REF) | payer BC ==
[2020-04-21 11:45] LABS: BASO # 0.1 10^3/uL (0.0-0.2); BASO % 1.2 % (0.0-1.0); EOS # 0.3 10^3/uL (0.0-0.5); EOS % 4.4 % (0.0-3.0); HEMATOCRIT 42.1 % (36.0-47.0); HEMOGLOBIN 13.2 g/dl (12.0-15.5); LYMPH # 2.5 10^3/uL (1.5-5.0); LYMPH % 37.7 % (24.0-44.0); MEAN CORPUSCULAR HEMOGLOBIN 30.1 pg (27.0-33.0); MEAN CORPUSCULAR HGB CONC 31.4 g/dl (32.0-36.5); MEAN CORPUSCULAR VOLUME 95.9 fl (80.0-96.0); MONO # 0.6 10^3/uL (0.0-0.8); MONO % 8.4 % (0.0-5.0); NEUTROPHILS # 3.2 10^3/uL (1.5-8.5); NEUTROPHILS % 48.3 % (36.0-66.0); PLATELET COUNT, AUTOMATED 210 10^3/uL (150-450); RED BLOOD COUNT 4.39 10^6/uL (4.00-5.40); WHITE BLOOD COUNT 6.6 10^3/uL (4.0-10.0)
[2020-04-21 12:15] LABS: ALBUMIN 3.6 GM/DL (3.2-5.2); BLOOD UREA NITROGEN 10 MG/DL (7-18); CALCIUM LEVEL 8.6 MG/DL (8.5-10.1); CARBON DIOXIDE LEVEL 27 MEQ/L (21-32); CHLORIDE LEVEL 109 MEQ/L (98-107); CREATININE FOR GFR 0.79 MG/DL (0.55-1.30); FREE T3 2.3 PG/ML (2.2-4.0); GLOMERULAR FILTRATION RATE > 60.0 (>58); GLUCOSE, FASTING 93 MG/DL (70-100); LITHIUM LEVEL 1.08 MEQ/L (0.60-1.20); PHOSPHORUS LEVEL 3.4 MG/DL (2.5-4.9); POTASSIUM SERUM 4.2 MEQ/L (3.5-5.1); SODIUM LEVEL 140 MEQ/L (136-145); THYROID STIMULATING HORMONE 0.909 uIU/ML (0.358-3.740); THYROXINE (T4) 6.3 UG/DL (4.5-12.0)
== END ==
LOC: M LABDRAWC 11:06
PROVIDERS: ATTEND Anesthesiology Pain Medicine
DX: F31.9 Bipolar disorder, unspecified (principal)

== ENCOUNTER → 2020-09-25 | Outpatient (REF) | payer BC ==
[2020-09-25 13:25] LABS: ALBUMIN 3.7 GM/DL (3.2-5.2); BLOOD UREA NITROGEN 10 MG/DL (7-18); CALCIUM LEVEL 9.4 MG/DL (8.5-10.1); CARBON DIOXIDE LEVEL 32 MEQ/L (21-32); CHLORIDE LEVEL 107 MEQ/L (98-107); FREE T3 2.5 PG/ML (2.2-4.0); GLOMERULAR FILTRATION RATE > 60.0 (>51); GLUCOSE, FASTING 100 MG/DL (70-100); LITHIUM LEVEL 1.07 MEQ/L (0.60-1.20); PHOSPHORUS LEVEL 3.4 MG/DL (2.5-4.9); POTASSIUM SERUM 5.6 MEQ/L (3.5-5.1); SODIUM LEVEL 140 MEQ/L (136-145); THYROXINE (T4) 5.6 UG/DL (4.5-12.0)
== END ==
LOC: M LABDRAWC 12:04
PROVIDERS: ATTEND Anesthesiology Pain Medicine
DX: F31.9 Bipolar disorder, unspecified (principal)

== ENCOUNTER → 2020-09-25 | Outpatient (REF) | payer BC ==
[2020-09-25 13:29] LABS: ALBUMIN 3.8 GM/DL (3.2-5.2); ALT/SGPT 19 U/L (12-78); BILIRUBIN,TOTAL 0.4 MG/DL (0.2-1.0); BLOOD UREA NITROGEN 10 MG/DL (7-18); CALCIUM LEVEL 9.4 MG/DL (8.5-10.1); CARBON DIOXIDE LEVEL 31 MEQ/L (21-32); CHLORIDE LEVEL 107 MEQ/L (98-107); CREATININE FOR GFR 0.92 MG/DL (0.55-1.30); GLOMERULAR FILTRATION RATE > 60.0 (>51); GLUCOSE, FASTING 97 MG/DL (70-100); POTASSIUM SERUM 5.2 MEQ/L (3.5-5.1); RHEUMATOID FACTOR QUANT < 10.0 IU/ML (<15.0); SODIUM LEVEL 138 MEQ/L (136-145); TOTAL 25(OH) VITAMIN D 91.7 NG/ML (30.0-100.0); TOTAL PROTEIN 6.6 GM/DL (6.4-8.2); VITAMIN B12 LEVEL 1405 PG/ML
[2020-09-25 13:30] LABS: FOLATE > 24.0 NG/ML
[2020-09-25 13:32] LABS: HEMOGLOBIN A1c 5.1 %
== END ==
LOC: M LABDRAWC 11:58
PROVIDERS: ATTEND Psychiatry & Neurology Neurology
DX: G62.9 Polyneuropathy, unspecified (principal)

== ENCOUNTER → 2020-09-26 | Outpatient (REF) | payer BC | LOC: M SFHCDERM 13:40 | PROVIDERS: ATTEND Dermatology | DX: L40.9 Psoriasis, unspecified (principal) ==

== ENCOUNTER → 2020-09-29 | Outpatient (REF) | payer BC ==
[2020-09-29 12:27] LABS: HEPATITIS B SURFACE ANTIBODY NEGATIVE (POSITIVE); RHEUMATOID FACTOR QUANT < 10.0 IU/ML (<15.0)
[2020-09-29 12:29] LABS: HEPATITIS B SURFACE ANTIGEN NEGATIVE (NEGATIVE)
[2020-09-29 12:57] LABS: HEPATITIS B CORE ANTIBODY IGM NEGATIVE (NEGATIVE); HEPATITIS C VIRUS ABY INDEX < 0.0 INDEX (<0.8)
[2020-09-29 12:58] LABS: HIV 1&2 SCREEN CENTAUR NEGATIVE (NEGATIVE)
[2020-09-29 12:59] LABS: HEPATITIS A ANTIBODY IGM NEGATIVE (NEGATIVE)
== END ==
LOC: M SFHCDERM 06:54
PROVIDERS: ATTEND Dermatology
DX: L40.9 Psoriasis, unspecified (principal)

== ENCOUNTER → 2021-03-09 | Outpatient (REF) | payer BC ==
[2021-03-09 13:10] LABS: BLOOD UREA NITROGEN 8 MG/DL (7-18); CALCIUM LEVEL 9.6 MG/DL (8.5-10.1); CARBON DIOXIDE LEVEL 32 MEQ/L (21-32); CHLORIDE LEVEL 109 MEQ/L (98-107); CREATININE FOR GFR 0.84 MG/DL (0.55-1.30); GLOMERULAR FILTRATION RATE > 60.0 (>51); GLUCOSE, FASTING 93 MG/DL (70-100); POTASSIUM SERUM 4.6 MEQ/L (3.5-5.1); SODIUM LEVEL 142 MEQ/L (136-145)
[2021-03-09 13:20] LABS: TOTAL 25(OH) VITAMIN D 69.6 NG/ML (30.0-100.0)
[2021-03-09 13:21] LABS: PTH INTACT 84.8 PG/ML (18.5-88.0)
== END ==
LOC: M SFHCCLAY 06:54
PROVIDERS: ATTEND Family Medicine
DX: E55.9 Vitamin D deficiency, unspecified (principal)

== ENCOUNTER 2021-06-25 09:37 | Day surgery (SDC) | payer BC ==
[~2021-06-25] VITALS: Ht 167.6 cm; Wt 87.9 kg
[~2021-06-25 09:37] MED LIST changes: +B-12100010 PO; +BETA5CR EXT; +CIME-49 PO; +CLOB0.0526 TOP; +D200CAP3 PO; +DRIS50003 PO; +DSS100CA PO; +DUPI300I SC; +FAMO40TA3 PO; +HYDR-3713 PO; +LEVO112C PO; +LINZ290C PO; +NS 1,000 ML IV ONE; +OYST250T20 PO; +SENN8.6T28 PO; +SING10TA32 PO; +SYMB80INH INH; +SYNT125T PO; +[UNRECOGNIZED DRUG - OTHER] PO
[2021-06-25] MEDS ORDERED: LIDOCAINE 2% MDV 20ML VIAL As Ordered ONE (10:37)
[2021-06-25] MEDS ORDERED: propofoL 500 MG/50 ML VIAL As Ordered ONE (10:37)
[2021-06-25] MEDS ORDERED: propofoL 200 MG/20 ML VIAL As Ordered ONE (11:37)
[2021-06-25 12:18] VITALS: BP 114/65
== END 2021-06-25 12:26 | disposition home or self-care (01) ==
LOC: M OPP 09:37
PROVIDERS: ATTEND Internal Medicine Gastroenterology
DX: Z12.11 Encounter for screening for malignant neoplasm of colon (principal); Z86.010 Personal history of colon polyps; Z80.0 Family history of malignant neoplasm of digestive organs; K64.8 Other hemorrhoids; R13.10 Dysphagia, unspecified; R12 Heartburn; Z80.1 Family history of malignant neoplasm of trachea, bronchus and lung; Z80.52 Family history of malignant neoplasm of bladder; Z79.891 Long term (current) use of opiate analgesic; Z79.899 Other long term (current) drug therapy; Z88.8 Allergy status to other drugs, medicaments and biological substances; Z91.040 Latex allergy status; Z91.041 Radiographic dye allergy status

== ENCOUNTER → 2021-09-04 | Outpatient (REF) | payer BC ==
[~2021-09-04] MED LIST changes: -NS 1,000 ML IV ONE
[2021-09-04 12:21] LABS: BASO # 0.1 10^3/uL (0.0-0.2); BASO % 1.3 % (0.0-1.0); EOS # 0.3 10^3/uL (0.0-0.5); EOS % 3.5 % (0.0-3.0); HEMATOCRIT 40.7 % (36.0-47.0); LYMPH # 2.4 10^3/uL (1.5-5.0); LYMPH % 33.4 % (24.0-44.0); MEAN CORPUSCULAR HEMOGLOBIN 30.7 pg (27.0-33.0); MEAN CORPUSCULAR HGB CONC 31.9 g/dl (32.0-36.5); MEAN CORPUSCULAR VOLUME 96.2 fl (80.0-96.0); MONO # 0.5 10^3/uL (0.0-0.8); MONO % 6.8 % (2.0-8.0); NEUTROPHILS # 3.9 10^3/uL (1.5-8.5); NEUTROPHILS % 54.9 % (36.0-66.0); PLATELET COUNT, AUTOMATED 203 10^3/uL (150-450); RED BLOOD COUNT 4.23 10^6/uL (4.00-5.40); WHITE BLOOD COUNT 7.1 10^3/uL (4.0-10.0)
[2021-09-04 12:38] LABS: ALBUMIN 3.5 GM/DL (3.2-5.2); ALT/SGPT 26 U/L (12-78); BILIRUBIN,TOTAL 0.5 MG/DL (0.2-1.0); BLOOD UREA NITROGEN 8 MG/DL (7-18); CARBON DIOXIDE LEVEL 29 MEQ/L (21-32); CHLORIDE LEVEL 112 MEQ/L (98-107); CHOLESTEROL LEVEL 163 MG/DL (<200); CHOLESTEROL RISK RATIO 4.657 (<5); CREATININE FOR GFR 0.87 MG/DL (0.55-1.30); GLOMERULAR FILTRATION RATE > 60.0 (>51); GLUCOSE, FASTING 90 MG/DL (70-100); HDL CHOLESTEROL 35 MG/DL (>40); IRON (FE) 91 UG/DL (50-170); LDL CHOLESTEROL 106 MG/DL (<100); LITHIUM LEVEL 1.34 MEQ/L (0.60-1.20); NON-HDL-C 128 MG/DL; POTASSIUM SERUM 4.2 MEQ/L (3.5-5.1); SODIUM LEVEL 143 MEQ/L (136-145); THYROXINE (T4) 7.1 UG/DL (4.5-12.0); TOTAL PROTEIN 6.3 GM/DL (6.4-8.2); TRIGLYCERIDES LEVEL 109 MG/DL (<150)
== END ==
LOC: M LABDRAWC 11:24
PROVIDERS: ATTEND Anesthesiology Pain Medicine
DX: R53.83 Other fatigue (principal); E78.00 Pure hypercholesterolemia, unspecified

== ENCOUNTER → 2022-01-01 | Outpatient (REF) | payer BC ==
[2022-01-01 11:59] LABS: BASO # 0.1 10^3/uL (0.0-0.2); EOS # 0.2 10^3/uL (0.0-0.5); EOS % 3.4 % (0.0-3.0); HEMATOCRIT 42.6 % (36.0-47.0); HEMOGLOBIN 13.5 g/dl (12.0-15.5); LYMPH % 44.8 % (24.0-44.0); MEAN CORPUSCULAR HEMOGLOBIN 30.1 pg (27.0-33.0); MEAN CORPUSCULAR HGB CONC 31.7 g/dl (32.0-36.5); MEAN CORPUSCULAR VOLUME 95.1 fl (80.0-96.0); MONO # 0.5 10^3/uL (0.0-0.8); MONO % 6.7 % (2.0-8.0); PLATELET COUNT, AUTOMATED 191 10^3/uL (150-450); RED BLOOD COUNT 4.48 10^6/uL (4.00-5.40); WHITE BLOOD COUNT 6.7 10^3/uL (4.0-10.0)
[2022-01-01 12:21] LABS: ERYTHROCYTE SEDIMENTATION RATE 2 mm/hr (0-30)
[2022-01-01 12:42] LABS: ALBUMIN 3.6 GM/DL (3.2-5.2); ALT/SGPT 25 U/L (12-78); BILIRUBIN,TOTAL 0.3 MG/DL (0.2-1.0); BLOOD UREA NITROGEN 9 MG/DL (7-18); CALCIUM LEVEL 9.1 MG/DL (8.5-10.1); CARBON DIOXIDE LEVEL 30 MEQ/L (21-32); CHLORIDE LEVEL 108 MEQ/L (98-107); CREATININE FOR GFR 0.83 MG/DL (0.55-1.30); FOLATE 17.6 NG/ML; GLOMERULAR FILTRATION RATE > 60.0 (>51); GLUCOSE, FASTING 100 MG/DL (70-100); POTASSIUM SERUM 4.1 MEQ/L (3.5-5.1); RHEUMATOID FACTOR QUANT < 10.0 IU/ML (<15.0); SODIUM LEVEL 141 MEQ/L (136-145); TOTAL PROTEIN 6.5 GM/DL (6.4-8.2); VITAMIN B12 LEVEL 1144 PG/ML
[2022-01-01 14:31] LABS: HEMOGLOBIN A1c 5.4 %
[2022-01-06 10:32] LABS: ALBUMIN % 63.9 % (55.8-66.1); ALPHA-1-GLOBULIN % 3.5 % (2.9-4.9); ALPHA-2-GLOBULINS % 9.8 % (7.1-11.8)
[2022-01-06 10:33] LABS: ALBUMIN 4.15 GM/DL (3.29-5.55); ALPHA-1-GLOBULINS 0.23 GM/DL (0.17-0.41); ALPHA-2-GLOBULINS 0.64 GM/DL (0.42-0.99); BETA-1-GLOBULINS 0.47 GM/DL (0.28-0.60); BETA-1-GLOBULINS % 7.3 % (4.7-7.2); BETA-2-GLOBULINS 0.26 GM/DL (0.19-0.55); GAMMA GLOBULIN % 11.5 % (11.1-18.8); GAMMA GLOBULINS 0.75 GM/DL (0.65-1.58)
[2022-01-06 18:10] LABS: ANTINUCLEAR ANTIBODIES DIRECT Negative (Negative); VITAMIN B1 LEVEL WHOLE BLOOD 156.8 nmol/L (66.5-200.0); VITAMIN B6,PYRIDOXAL PHOSPHATE 8.1 ug/L (3.4-65.2); VITAMIN E(ALPHA TOCOPHEROL) 13.3 mg/L (7.0-25.1); VITAMIN E(GAMMA TOCOPHEROL) 1.4 mg/L (0.5-5.5)
== END ==
LOC: M LABDRAWC 11:24
PROVIDERS: ATTEND Psychiatry & Neurology Neurology
DX: G62.9 Polyneuropathy, unspecified (principal)

== ENCOUNTER → 2022-01-01 | Outpatient (REF) | payer BC ==
[2022-01-01 12:51] LABS: BLOOD UREA NITROGEN 9 MG/DL (7-18); CARBON DIOXIDE LEVEL 32 MEQ/L (21-32); CHLORIDE LEVEL 109 MEQ/L (98-107); CREATININE FOR GFR 0.84 MG/DL (0.55-1.30); GLOMERULAR FILTRATION RATE > 60.0 (>51); GLUCOSE, FASTING 103 MG/DL (70-100); POTASSIUM SERUM 4.3 MEQ/L (3.5-5.1); SODIUM LEVEL 141 MEQ/L (136-145)
[2022-01-01 12:52] LABS: ALBUMIN 3.5 GM/DL (3.2-5.2); CALCIUM LEVEL 9.2 MG/DL (8.5-10.1); PHOSPHORUS LEVEL 3.3 MG/DL (2.5-4.9); THYROXINE (T4) 7.7 UG/DL (4.5-12.0)
[2022-01-01 18:24] LABS: FREE T3 2.3 PG/ML (2.2-4.0); LITHIUM LEVEL 0.85 MEQ/L (0.60-1.20)
== END ==
LOC: M LABDRAWC 11:23
PROVIDERS: ATTEND Anesthesiology Pain Medicine
DX: F31.9 Bipolar disorder, unspecified (principal)

== ENCOUNTER → 2022-02-12 | Outpatient (REF) | payer BC ==
[~2022-02-12] MED LIST changes: +ALBU6.7H6 INH; -PROV108A INH
== END ==
LOC: M SFHCCLAY 06:49
PROVIDERS: ATTEND Family Medicine
DX: M25.50 Pain in unspecified joint (principal)

== ENCOUNTER → 2022-03-29 | Outpatient (REF) | payer BC ==
[2022-03-29 13:25] LABS: ALBUMIN 3.7 GM/DL (3.2-5.2); ALT/SGPT 22 U/L (12-78); BILIRUBIN,TOTAL 0.4 MG/DL (0.2-1.0); BLOOD UREA NITROGEN 8 MG/DL (7-18); CALCIUM LEVEL 9.4 MG/DL (8.5-10.1); CARBON DIOXIDE LEVEL 29 MEQ/L (21-32); CHLORIDE LEVEL 108 MEQ/L (98-107); CHOLESTEROL LEVEL 182 MG/DL (<200); CREATININE FOR GFR 0.89 MG/DL (0.55-1.30); FREE T3 2.5 PG/ML (2.2-4.0); GLOMERULAR FILTRATION RATE > 60.0 (>51); GLUCOSE, FASTING 93 MG/DL (70-100); HDL CHOLESTEROL 35 MG/DL (>40); LDL CHOLESTEROL 118 MG/DL (<100); LITHIUM LEVEL 0.91 MEQ/L (0.60-1.20); NON-HDL-C 147 MG/DL; PHOSPHORUS LEVEL 2.9 MG/DL (2.5-4.9); POTASSIUM SERUM 4.5 MEQ/L (3.5-5.1); SODIUM LEVEL 139 MEQ/L (136-145); THYROXINE (T4) 7.4 UG/DL (4.5-12.0); TOTAL PROTEIN 6.5 GM/DL (6.4-8.2); TRIGLYCERIDES LEVEL 143 MG/DL (<150)
== END ==
LOC: M LABDRAWC 11:13
PROVIDERS: ATTEND Anesthesiology Pain Medicine
DX: F31.9 Bipolar disorder, unspecified (principal)

== ENCOUNTER → 2022-06-04 | Outpatient (CLI) | payer BC ==
[~2022-06-04] MED LIST changes: +BARIUM SULFATE 700 MG TABLET (E-Z-DISK) As Ordered ONE; +E-Z-PAQUE 96% w/w SUSP 176GM BTL As Ordered ONE; +VARIBAR NECTAR 40% w/v 240ML SUSP BTL As Ordered ONE; +VARIBAR PUDDING 40% w/v 230ML TUBE As Ordered ONE
== END ==
LOC: M RAD 11:02
PROVIDERS: ATTEND Physician Assistant Medical
DX: R13.10 Dysphagia, unspecified (principal)

== ENCOUNTER → 2022-07-02 | Outpatient (CLI) | payer BC ==
[~2022-07-02] MED LIST changes: -BARIUM SULFATE 700 MG TABLET (E-Z-DISK) As Ordered ONE; +E-Z-GAS II EFFERVESCENT PACKET (SODIUM BICARB./CITRIC ACID/SIMETHICONE) As Ordered ONE; -VARIBAR NECTAR 40% w/v 240ML SUSP BTL As Ordered ONE; -VARIBAR PUDDING 40% w/v 230ML TUBE As Ordered ONE
== END ==
LOC: M RAD 09:54
PROVIDERS: ATTEND Physician Assistant Medical
DX: K22.4 Dyskinesia of esophagus (principal); Z90.3 Acquired absence of stomach [part of]; K44.9 Diaphragmatic hernia without obstruction or gangrene; K21.9 Gastro-esophageal reflux disease without esophagitis

== ENCOUNTER → 2022-10-29 | Outpatient (REF) | payer BC ==
[~2022-10-29] MED LIST changes: -DESM0.2T10 PO; +DESM0.2T22 PO; -E-Z-GAS II EFFERVESCENT PACKET (SODIUM BICARB./CITRIC ACID/SIMETHICONE) As Ordered ONE; -E-Z-PAQUE 96% w/w SUSP 176GM BTL As Ordered ONE; +MONT-5 PO; -SING10TA32 PO
[2022-10-29 18:11] LABS: BLOOD UREA NITROGEN 7 MG/DL (9-23); CALCIUM LEVEL 9.7 MG/DL (8.5-10.1); CARBON DIOXIDE LEVEL 28 MMOL/L (20-31); CHLORIDE LEVEL 110 MMOL/L (98-107); CREATININE FOR GFR 0.85 MG/DL (0.55-1.30); GLOMERULAR FILTRATION RATE > 60.0 (>51); GLUCOSE, FASTING 99 MG/DL (60-100); POTASSIUM SERUM 4.7 MMOL/L (3.5-5.1); PTH INTACT 113.9 PG/ML (18.5-88.0); SODIUM LEVEL 142 MMOL/L (136-145)
[2022-10-29 18:12] LABS: TOTAL 25(OH) VITAMIN D 72.4 NG/ML (20.0-100.0)
== END ==
LOC: M SFHCCLAY 12:42
PROVIDERS: ATTEND Family Medicine
DX: J01.40 Acute pansinusitis, unspecified (principal); L40.9 Psoriasis, unspecified; M85.89 Other specified disorders of bone density and structure, multiple sites

== ENCOUNTER → 2023-08-04 | Outpatient (REF) | payer BC ==
[2023-08-04 18:46] LABS: BASO # 0.1 10^3/uL (0.0-0.2); EOS # 0.2 10^3/uL (0.0-0.5); EOS % 2.2 % (0.0-3.0); HEMOGLOBIN 13.8 g/dl (12.0-15.5); LYMPH # 1.6 10^3/uL (1.5-5.0); LYMPH % 23.3 % (24.0-44.0); MEAN CORPUSCULAR HEMOGLOBIN 30.2 pg (27.0-33.0); MEAN CORPUSCULAR HGB CONC 31.4 g/dl (32.0-36.5); MEAN CORPUSCULAR VOLUME 96.3 fl (80.0-96.0); MONO # 0.4 10^3/uL (0.0-0.8); MONO % 6.3 % (2.0-8.0); NEUTROPHILS # 4.5 10^3/uL (1.5-8.5); NEUTROPHILS % 66.9 % (36.0-66.0); PLATELET COUNT, AUTOMATED 207 10^3/uL (150-450); RED BLOOD COUNT 4.57 10^6/uL (4.00-5.40); WHITE BLOOD COUNT 6.8 10^3/uL (4.0-10.0)
[2023-08-04 18:58] LABS: HEMOGLOBIN A1c 5.4 % (4.0-6.0)
[2023-08-04 19:05] LABS: ERYTHROCYTE SEDIMENTATION RATE 2 mm/hr (0-30)
[2023-08-04 19:20] LABS: ALBUMIN 3.7 G/DL (3.2-5.2); ALKALINE PHOSPHATASE 118 U/L (46-116); ALT/SGPT 18 U/L (7.0-40); AST/SGOT 13 U/L (<34); BILIRUBIN,TOTAL 0.6 MG/DL (0.3-1.2); BLOOD UREA NITROGEN 10 MG/DL (9-23); CALCIUM LEVEL 9.4 MG/DL (8.5-10.1); CARBON DIOXIDE LEVEL 26 MMOL/L (20-31); CHLORIDE LEVEL 111 MMOL/L (98-107); FOLATE > 24.0 NG/ML (>5.4); GLOMERULAR FILTRATION RATE > 60.0 (>51); GLUCOSE, FASTING 96 MG/DL (60-100); POTASSIUM SERUM 4.5 MMOL/L (3.5-5.1); RHEUMATOID FACTOR QUANT < 3.5 IU/ML (<14); SODIUM LEVEL 141 MMOL/L (136-145); THYROID STIMULATING HORMONE 0.062 uIU/ML (0.55-4.78); TOTAL PROTEIN 6.3 G/DL (5.7-8.2); VITAMIN B12 LEVEL 688 PG/ML (211-911)
[2023-08-09 11:00] LABS: DRVV SCREEN 34.4 SECONDS
[2023-08-09 11:12] LABS: PTT LUPUS TYPE ANTICOAG SCREEN 0.82 (0-1.20)
[2023-08-13 11:09] LABS: ANTI DS-DNA AB Negative (Negative); ANTINUCLEAR ANTIBODIES DIRECT Negative (Negative); IgG P18 AB Absent (.); IgG P23 AB Absent (.); IgG P28 AB Absent (.); IgG P30 AB Absent (.); IgG P39 AB Absent (.); IgG P41 AB Absent (.); IgG P45 AB Absent (.); IgG P66 AB Absent (.); IgG P93 AB Absent (.); IgM P23 AB Absent (.); IgM P39 AB Absent (.); IgM P41 AB Absent (.); LYME IgG WB INTERPRETATION Negative (.); LYME IgM WB INTERPRETATION Negative (.); SJOGREN'S ANTI SS-A 0.3 AI (0.0-0.9); SJOGREN'S ANTI SS-B <0.2 AI (0.0-0.9); VITAMIN B1 LEVEL WHOLE BLOOD 149.6 nmol/L (66.5-200.0); VITAMIN B6,PYRIDOXAL PHOSPHATE 3.6 ug/L (3.4-65.2); VITAMIN E(ALPHA TOCOPHEROL) 10.9 mg/L (7.0-25.1); VITAMIN E(GAMMA TOCOPHEROL) 1.4 mg/L (0.5-5.5)
== END ==
LOC: M LABDRAWC 17:02
PROVIDERS: ATTEND Psychiatry & Neurology Neurology
DX: G62.9 Polyneuropathy, unspecified (principal)

== ENCOUNTER → 2023-11-25 | Outpatient (CLI) | payer BC | LOC: M CLY 16:11 | PROVIDERS: ATTEND Family Medicine | DX: Z53.9 Procedure and treatment not carried out, unspecified reason (principal) ==

== ENCOUNTER → 2023-11-28 | Outpatient (CLI) | payer BC | LOC: M CLY 08:42 | PROVIDERS: ATTEND Family Medicine | DX: M79.671 Pain in right foot (principal) ==

== ENCOUNTER → 2023-11-28 | Outpatient (REF) | payer BC ==
[2023-11-28 12:21] LABS: INR 0.96; PARTIAL THROMBOPLASTIN TIME 28.1 SECONDS (24.8-34.2); PROTHROMBIN TIME 12.5 SECONDS (12.5-14.5)
[2023-11-28 12:24] LABS: HEMATOCRIT 42.7 % (36.0-47.0); HEMOGLOBIN 13.7 g/dl (12.0-15.5); MEAN CORPUSCULAR HEMOGLOBIN 30.8 pg (27.0-33.0); MEAN CORPUSCULAR HGB CONC 32.1 g/dl (32.0-36.5); PLATELET COUNT, AUTOMATED 173 10^3/uL (150-450); RED BLOOD COUNT 4.45 10^6/uL (4.00-5.40); WHITE BLOOD COUNT 6.1 10^3/uL (4.0-10.0)
== END ==
LOC: M SFHCCLAY 08:34
PROVIDERS: ATTEND Family Medicine
DX: D69.2 Other nonthrombocytopenic purpura (principal)

== ENCOUNTER → 2024-02-24 | Outpatient (REF) | payer BC ==
[2024-02-24 11:45] LABS: ALBUMIN 3.8 G/DL (3.2-5.2); ALKALINE PHOSPHATASE 124 U/L (46-116); ALT/SGPT 19 U/L (7.0-40); AST/SGOT 10 U/L (<34); BILIRUBIN,TOTAL 0.5 MG/DL (0.3-1.2); BLOOD UREA NITROGEN 11 MG/DL (9-23); CALCIUM LEVEL 9.7 MG/DL (8.5-10.1); CARBON DIOXIDE LEVEL 30 MMOL/L (20-31); CHLORIDE LEVEL 110 MMOL/L (98-107); CREATININE FOR GFR 0.98 MG/DL (0.55-1.30); GLOMERULAR FILTRATION RATE > 60.0 (>51); GLUCOSE, FASTING 87 MG/DL (60-100); POTASSIUM SERUM 4.5 MMOL/L (3.5-5.1); SODIUM LEVEL 139 MMOL/L (136-145); TOTAL PROTEIN 6.3 G/DL (5.7-8.2)
[2024-02-24 11:46] LABS: THYROXINE (T4) 6.8 UG/DL (4.5-10.9)
[2024-02-24 11:47] LABS: FREE T3 3.1 PG/ML (2.3-4.2); THYROID STIMULATING HORMONE 0.229 uIU/ML (0.55-4.78)
== END ==
LOC: M LABDRAWC 10:56
PROVIDERS: ATTEND Anesthesiology Pain Medicine
DX: F31.9 Bipolar disorder, unspecified (principal)

== ENCOUNTER → 2024-05-16 | Outpatient (REF) | payer BC | LOC: EEVIPCON 11:53 → M SFHCCLAY 11:53 | PROVIDERS: ATTEND Physician Assistant | DX: L03.012 Cellulitis of left finger (principal) ==

== ENCOUNTER → 2024-08-10 | Outpatient (REF) | payer BC ==
[2024-08-10 19:35] LABS: BASO # 0.1 10^3/uL (0.0-0.2); BASO % 1.3 % (0.0-1.0); EOS # 0.2 10^3/uL (0.0-0.5); EOS % 3.4 % (0.0-3.0); HEMATOCRIT 43.7 % (36.0-47.0); HEMOGLOBIN 14.1 g/dl (12.0-15.5); LYMPH # 1.6 10^3/uL (1.5-5.0); LYMPH % 25.5 % (24.0-44.0); MEAN CORPUSCULAR HEMOGLOBIN 31.1 pg (27.0-33.0); MEAN CORPUSCULAR HGB CONC 32.3 g/dl (32.0-36.5); MEAN CORPUSCULAR VOLUME 96.3 fl (80.0-96.0); MONO # 0.5 10^3/uL (0.0-0.8); MONO % 7.4 % (2.0-8.0); NEUTROPHILS # 3.9 10^3/uL (1.5-8.5); NEUTROPHILS % 62.2 % (36.0-66.0); PLATELET COUNT, AUTOMATED 195 10^3/uL (150-450); RED BLOOD COUNT 4.54 10^6/uL (4.00-5.40); WHITE BLOOD COUNT 6.2 10^3/uL (4.0-10.0)
[2024-08-10 19:40] LABS: IRON (FE) 72 UG/DL (50-170)
[2024-08-10 19:41] LABS: ALBUMIN 3.9 G/DL (3.2-5.2); ALKALINE PHOSPHATASE 125 U/L (35-104); ALT/SGPT 21 U/L (7.0-40); AST/SGOT 12 U/L (<34); BILIRUBIN,TOTAL 0.5 MG/DL (0.3-1.2); BLOOD UREA NITROGEN 9 MG/DL (9-23); CALCIUM LEVEL 9.6 MG/DL (8.5-10.1); CARBON DIOXIDE LEVEL 26 MMOL/L (20-31); CHLORIDE LEVEL 113 MMOL/L (98-107); CHOLESTEROL LEVEL 180 MG/DL (<200); CHOLESTEROL RISK RATIO 4.28 (<5); CREATININE FOR GFR 0.81 MG/DL (0.55-1.30); GLOMERULAR FILTRATION RATE > 60.0 (>51); GLUCOSE, FASTING 99 MG/DL (60-100); LDL CHOLESTEROL 107.4 MG/DL (<100); PERCENT SATURATION 16.3 % (13.2-45.0); POTASSIUM SERUM 4.6 MMOL/L (3.5-5.1); SODIUM LEVEL 145 MMOL/L (136-145); TOTAL IRON BINDING CAPACITY 442 UG/DL (250-425); TOTAL PROTEIN 6.9 G/DL (5.7-8.2); TRIGLYCERIDES LEVEL 153 MG/DL (<150)
[2024-08-10 19:42] LABS: THYROID STIMULATING HORMONE 0.165 uIU/ML (0.55-4.78)
[2024-08-10 19:43] LABS: FERRITIN 12.9 NG/ML (7.3-270.7); FREE T4 1.49 NG/DL (0.89-1.76); VITAMIN B12 LEVEL 679 PG/ML (211-911)
[2024-08-10 20:02] LABS: HEMOGLOBIN A1c 5.2 % (4.0-6.0)
== END ==
LOC: M SFHCCLAY 14:06
PROVIDERS: ATTEND Nurse Practitioner Family
DX: F31.70 Bipolar disorder, currently in remission, most recent episode unspecified (principal); J45.909 Unspecified asthma, uncomplicated; L40.9 Psoriasis, unspecified; E03.9 Hypothyroidism, unspecified; K58.1 Irritable bowel syndrome with constipation; K21.9 Gastro-esophageal reflux disease without esophagitis; R00.0 Tachycardia, unspecified; E55.9 Vitamin D deficiency, unspecified; E53.8 Deficiency of other specified B group vitamins

== ENCOUNTER → 2024-10-19 | Outpatient (REF) | payer BC ==
[~2024-10-19] MED LIST changes: -LEVO112C PO; +LEVO112C2 PO
== END ==
LOC: M SFHCCLAY 12:04
PROVIDERS: ATTEND Physician Assistant
DX: L03.011 Cellulitis of right finger (principal)

== ENCOUNTER → 2025-02-14 | Outpatient (REF) | payer BC ==
[2025-02-14 19:12] LABS: ALT/SGPT 22.0 U/L (7.0-40); AST/SGOT 19.0 U/L (<34); CALCIUM LEVEL 9.1 MG/DL (8.5-10.1); CARBON DIOXIDE LEVEL 25.0 MMOL/L (20-31); CHLORIDE LEVEL 107.0 MMOL/L (98-107); CREATININE FOR GFR 0.87 MG/DL (0.55-1.30); GLOMERULAR FILTRATION RATE 79.1 (>51); POTASSIUM SERUM 4.8 MMOL/L (3.5-5.1); SODIUM LEVEL 141.0 MMOL/L (136-145)
[2025-02-14 19:14] LABS: LITHIUM LEVEL 1.1 MMOL/L (1.0-1.20)
== END ==
LOC: M LABDRAWC 17:25
PROVIDERS: ATTEND Psychiatry & Neurology Child & Adolescent Psychiatry
DX: F41.1 Generalized anxiety disorder (principal); F31.9 Bipolar disorder, unspecified

== ENCOUNTER → 2025-02-21 | Outpatient (REF) | payer BC ==
[2025-02-21 18:49] LABS: BASO # 0.1 10^3/uL (0.0-0.2); BASO % 1.2 % (0.0-1.0); EOS # 0.2 10^3/uL (0.0-0.5); EOS % 3.6 % (0.0-3.0); LYMPH # 1.8 10^3/uL (1.5-5.0); LYMPH % 30.7 % (24.0-44.0); MONO # 0.4 10^3/uL (0.0-0.8); MONO % 6.7 % (2.0-8.0); NEUTROPHILS # 3.3 10^3/uL (1.5-8.5); NEUTROPHILS % 57.6 % (36.0-66.0); PLATELET COUNT, AUTOMATED 211 10^3/uL (150-450)
[2025-02-21 19:19] LABS: ALT/SGPT 29.0 U/L (7.0-40); AST/SGOT 24.0 U/L (<34); CALCIUM LEVEL 9.4 MG/DL (8.5-10.1); CARBON DIOXIDE LEVEL 25.0 MMOL/L (20-31); CHLORIDE LEVEL 110.0 MMOL/L (98-107); CHOLESTEROL LEVEL 151.0 MG/DL (<200); CHOLESTEROL RISK RATIO 4.32 (<5); CREATININE FOR GFR 0.94 MG/DL (0.55-1.30); GLOMERULAR FILTRATION RATE 72.1 (>51); IRON (FE) 77.0 UG/DL (50-170); LDL CHOLESTEROL 87.5 MG/DL (<100); NON-HDL-C 116.1 MG/DL; PERCENT SATURATION 19.5 % (13.2-45.0); POTASSIUM SERUM 4.6 MMOL/L (3.5-5.1); SODIUM LEVEL 140.0 MMOL/L (136-145); TRIGLYCERIDES LEVEL 143.0 MG/DL (<150)
[2025-02-21 19:20] LABS: FREE T4 1.28 NG/DL (0.89-1.76)
[2025-02-21 19:22] LABS: VITAMIN B12 LEVEL 820.0 PG/ML (211-911)
[2025-02-21 19:56] LABS: ESTIMATED AVERAGE GLUCOSE 111.0 MG/DL (60-110)
== END ==
LOC: M SFHCCLAY 14:40
PROVIDERS: ATTEND Nurse Practitioner Family
DX: J45.909 Unspecified asthma, uncomplicated (principal); F31.70 Bipolar disorder, currently in remission, most recent episode unspecified; L40.9 Psoriasis, unspecified; E03.9 Hypothyroidism, unspecified; K58.1 Irritable bowel syndrome with constipation; K21.9 Gastro-esophageal reflux disease without esophagitis; R00.0 Tachycardia, unspecified; E55.9 Vitamin D deficiency, unspecified; E53.8 Deficiency of other specified B group vitamins; Z88.1 Allergy status to other antibiotic agents; D50.0 Iron deficiency anemia secondary to blood loss (chronic); L40.8 Other psoriasis; J30.89 Other allergic rhinitis; N32.81 Overactive bladder; G89.29 Other chronic pain

== ENCOUNTER → 2025-03-15 | Outpatient (CLI) | payer BC ==
[2025-03-15 17:40] LABS: ALT/SGPT 25.0 U/L (7.0-40); AST/SGOT 20.0 U/L (<34); CALCIUM LEVEL 9.8 MG/DL (8.5-10.1); CARBON DIOXIDE LEVEL 26.0 MMOL/L (20-31); CHLORIDE LEVEL 111.0 MMOL/L (98-107); CREATININE FOR GFR 0.89 MG/DL (0.55-1.30); GLOMERULAR FILTRATION RATE 77.0 (>51); POTASSIUM SERUM 4.5 MMOL/L (3.5-5.1); SODIUM LEVEL 143.0 MMOL/L (136-145)
[2025-03-15 17:41] LABS: LITHIUM LEVEL 0.89 MMOL/L (1.0-1.20)
== END ==
LOC: M PLALAB 14:23
PROVIDERS: ATTEND Psychiatry & Neurology Child & Adolescent Psychiatry
DX: F41.1 Generalized anxiety disorder (principal); F31.9 Bipolar disorder, unspecified

== ENCOUNTER → 2025-03-21 | Outpatient (CLI) | payer BC | LOC: M WHC 13:32 | PROVIDERS: ATTEND Nurse Practitioner Family | DX: R22.32 Localized swelling, mass and lump, left upper limb (principal) ==

== ENCOUNTER → 2025-04-12 | Outpatient (REF) | payer BC ==
[2025-04-12 14:58] LABS: BASO # 0.1 10^3/uL (0.0-0.2); BASO % 1.4 % (0.0-1.0); EOS # 0.2 10^3/uL (0.0-0.5); EOS % 2.7 % (0.0-3.0); LYMPH # 1.5 10^3/uL (1.5-5.0); LYMPH % 22.5 % (24.0-44.0); MONO # 0.6 10^3/uL (0.0-0.8); MONO % 9.1 % (2.0-8.0); NEUTROPHILS # 4.3 10^3/uL (1.5-8.5); NEUTROPHILS % 64.1 % (36.0-66.0); PLATELET COUNT, AUTOMATED 237 10^3/uL (150-450)
[2025-04-12 15:03] LABS: ALT/SGPT 36.0 U/L (7.0-40); AST/SGOT 22.0 U/L (<34); CALCIUM LEVEL 9.9 MG/DL (8.5-10.1); CARBON DIOXIDE LEVEL 27.0 MMOL/L (20-31); CHLORIDE LEVEL 108.0 MMOL/L (98-107); CREATININE FOR GFR 0.9 MG/DL (0.55-1.30); GLOMERULAR FILTRATION RATE 76.0 (>51); POTASSIUM SERUM 3.7 MMOL/L (3.5-5.1); SODIUM LEVEL 142.0 MMOL/L (136-145)
== END ==
LOC: M SFHCCLAY 09:01
PROVIDERS: ATTEND Physician Assistant
DX: R11.2 Nausea with vomiting, unspecified (principal)